=== PATIENT | male | born 1960 | race Caucasian/White ===

== ENCOUNTER 2023-03-17 18:53 | Emergency (ER) | payer BC, MEDICAID ==
[2023-03-17] MEDS: Take Home: Amoxicillin 875 MG Tab, 2 Tab Pack PO ONE (20:11)
== END 2023-03-17 19:45 | disposition home or self-care (01) ==
LOC: VM.ED 18:53
DX: J01.90 Acute sinusitis, unspecified (principal); F17.210 Nicotine dependence, cigarettes, uncomplicated
CPT/HCPCS: 99283; A9270-GY